=== PATIENT | male | born 1935 | race Caucasian/White ===

== ENCOUNTER 2019-06-20 12:11 | Outpatient (CLI) | payer MEDICARE, OTHER ==
[~2019-06-20 12:11] MED LIST: CETI-90 PO; CHLO4TAB PO; DIO80T PO; FLO0.4C PO; MULT-342 PO; TRAM50TA2 PO
== END 2019-06-20 23:59 | disposition home or self-care (01) ==
LOC: RAD 12:11
DX: M48.02 Spinal stenosis, cervical region (principal); M54.12 Radiculopathy, cervical region; M54.13 Radiculopathy, cervicothoracic region; G44.221 Chronic tension-type headache, intractable; I63.81 Other cerebral infarction due to occlusion or stenosis of small artery; I10 Essential (primary) hypertension; N40.0 Benign prostatic hyperplasia without lower urinary tract symptoms; E78.5 Hyperlipidemia, unspecified; I48.20 Chronic atrial fibrillation, unspecified
CPT/HCPCS: 72141

== ENCOUNTER 2020-01-27 10:24 | Outpatient (CLI) | payer MEDICARE, OTHER ==
[~2020-01-27 10:24] MED LIST changes: +iohexol 350MG/ML 100ml bottle IV ONE
[2020-01-27] MEDS ORDERED: GADOTERATE MEGLUMINE 7.5 MMOL/15 ML VIAL IV ONE (12:55)
== END 2020-01-27 23:59 | disposition home or self-care (01) ==
LOC: RAD 10:24
PROVIDERS: ATTEND Psychiatry & Neurology Neurology
DX: I65.23 Occlusion and stenosis of bilateral carotid arteries (principal); G31.9 Degenerative disease of nervous system, unspecified; G93.89 Other specified disorders of brain
CPT/HCPCS: 70496; 70498; 70553; A9575; Q9967

== ENCOUNTER 2020-11-05 10:22 | Outpatient (CLI) | payer MEDICARE, OTHER ==
[~2020-11-05 10:22] MED LIST changes: -iohexol 350MG/ML 100ml bottle IV ONE
== END 2020-11-05 23:59 | disposition home or self-care (01) ==
LOC: RAD 10:22
PROVIDERS: ATTEND Anesthesiology
DX: M50.023 Cervical disc disorder at C6-C7 level with myelopathy (principal); M48.02 Spinal stenosis, cervical region; M47.12 Other spondylosis with myelopathy, cervical region; G95.89 Other specified diseases of spinal cord
CPT/HCPCS: 72141

== ENCOUNTER 2021-10-06 23:58 | Emergency (ER) | payer MEDICARE, OTHER ==
[~2021-10-06] VITALS: Ht 188 cm; Wt 113.6 kg
--- NOTE | 2021-10-07 00:21 | NUR ---
Mild small scattered abrasions observed on extremities. No head wounds noted.
[2021-10-07] MEDS ORDERED: normal saline 1000ML IV soln IVB ONE (00:30)
[2021-10-07 01:35] LABS: BASOPHILS % (AUTO) 0.5 % (0-1); EOSINOPHILS % (AUTO) 0.5 % (0-6); HEMATOCRIT 39.2 % (42.0-52.0); HEMOGLOBIN 13.1 g/dl (14.0-17.9); LYMPHOCYTES % (AUTO) 14.2 % (21-51); MEAN CORPUSCULAR HGB CONC 33.4 g/dL (33.0-36.5); MEAN CORPUSCULAR VOLUME 89.8 FL (78-98); MEAN PLATELET VOLUME 10.8 FL (7.4-10.4); MONOCYTES # (AUTO) 0.6 X10'3 (0-0.9); MONOCYTES % (AUTO) 8.8 % (2-12); NEUTROPHILS # (AUTO) 5.5 X10'3 (1.8-7.7); PLATELET COUNT 129 X10'3 (140-440); RED BLOOD COUNT 4.37 X10'6 (4.70-6.10); RED CELL DISTRIBUTION WIDTH 15.6 % (11.5-14.5); WHITE BLOOD COUNT 7.3 X10'3 (4.5-11.0)
[2021-10-07 01:42] LABS: ALANINE AMINOTRANSFERASE 8 U/L (12-78); ALBUMIN 3.7 G/DL (3.4-5.0); ALKALINE PHOSPHATASE 104 IU/L (46-116); ANION GAP 9 (8-16); ASPARTATE AMINO TRANSFERASE 15 U/L (10-37); BILIRUBIN,TOTAL 0.6 MG/DL (0.1-1.0); BLOOD UREA NITROGEN 26 MG/DL (7-18); BUN/CREATININE RATIO 16.6 (5.4-32.0); CALCIUM 8.9 MG/DL (8.5-10.1); CHLORIDE 107 MMOL/L (99-107); CREATININE 1.57 MG/DL (0.60-1.10); GLUCOSE 117 MG/DL (70-104); POTASSIUM 4.3 MMOL/L (3.5-5.1); SODIUM 145 MMOL/L (135-145); TOTAL CARBON DIOXIDE 28.8 MMOL/L (24-32); TOTAL PROTEIN 7.3 G/DL (6.4-8.2); eGFR 42 ML/MIN
[2021-10-07 01:45] LABS: MAGNESIUM 2.5 MG/DL (1.5-2.4)
[2021-10-07 04:08] LABS: CLARITY,URINE CLEAR (Clear); COLOR,URINE YELLOW (Yellow); GLUCOSE, URINE NEGATIVE (Neg); KETONES,URINE TRACE mg/dl (Neg); LEUKOCYTE ESTERASE ,URINE NEGATIVE (Neg); NITRITES, URINE NEGATIVE (Neg); OCCULT BLOOD,URINE NEGATIVE (Neg); PROTEIN,URINE NEGATIVE (Neg); UROBILINOGEN,URINE 0.2 E.U/dL (0.2-1.0)
[2021-10-07 04:13] LABS: UA COLLECTION TYPE URINAL
[2021-10-07 04:44] LABS: ANISOCYTOSIS FEW; ELLIPTOCYTES 1+; LARGE PLATELETS FEW; PLATELET ESTIMATE DECREASED
[2021-10-07] MEDS ORDERED: LIDOcaine 5% patch TP ONE (06:00)
[2021-10-07] MEDS ORDERED: AZIT-83 PO (06:12)
[2021-10-07] MEDS ORDERED: NIRM1TAB PO (07:03)
[2021-10-07 07:32] VITALS: BP 166/95
== END 2021-10-07 07:24 | disposition home or self-care (01) ==
LOC: ER 23:59
DX: U07.1 COVID-19 (principal); R07.81 Pleurodynia; M54.2 Cervicalgia; E78.00 Pure hypercholesterolemia, unspecified; I10 Essential (primary) hypertension; G89.29 Other chronic pain; M54.9 Dorsalgia, unspecified; Z87.81 Personal history of (healed) traumatic fracture; I51.9 Heart disease, unspecified; W19.XXXA Unspecified fall, initial encounter; Y93.89 Activity, other specified; Y92.89 Other specified places as the place of occurrence of the external cause; Y99.8 Other external cause status
CPT/HCPCS: 36415; 70450; 71045; 71250; 72125; 80053; 81003; 83735; 83880; 84145; 84484; 85008; 85025; 87635; 96360; 99285; C9803; J7030

== ENCOUNTER 2023-02-17 18:27 | Inpatient (IN) | payer MEDICARE, OTHER ==
[~2023-02-17] VITALS: Ht 182.9 cm; Wt 81.8 kg
[~2023-02-17 18:27] MED LIST changes: +NIRM1TAB PO
[2023-02-17] MEDS ORDERED: aspirin 81mg tab.chew PO ONE (18:40)
[2023-02-17 20:57] LABS: BASOPHILS % (AUTO) 0.7 % (0-1); EOSINOPHILS % (AUTO) 0.5 % (0-6); HEMATOCRIT 40.8 % (42.0-52.0); HEMOGLOBIN 13.6 g/dl (14.0-17.9); LYMPHOCYTES # (AUTO) 0.8 X10'3 (1.1-4.8); LYMPHOCYTES % (AUTO) 18.2 % (21-51); MEAN CORPUSCULAR HEMOGLOBIN 31.3 PG (27.0-31.0); MEAN CORPUSCULAR HGB CONC 33.3 g/dL (33.0-36.5); MEAN PLATELET VOLUME 9.9 FL (7.4-10.4); MONOCYTES # (AUTO) 0.4 X10'3 (0-0.9); MONOCYTES % (AUTO) 8.3 % (2-12); NEUTROPHILS # (AUTO) 3.4 X10'3 (1.8-7.7); NEUTROPHILS % (AUTO) 72.3 % (42-75); PLATELET COUNT 150 X10'3 (140-440); RED BLOOD COUNT 4.34 X10'6 (4.70-6.10); RED CELL DISTRIBUTION WIDTH 14.5 % (11.5-14.5); WHITE BLOOD COUNT 4.7 X10'3 (4.5-11.0)
[2023-02-17 21:06] LABS: ALBUMIN 3.5 G/DL (3.4-5.0); ALBUMIN/GLOBULIN RATIO 1.2 (1.1-1.5); ALKALINE PHOSPHATASE 81 IU/L (46-116); ANION GAP 6 (8-16); ASPARTATE AMINO TRANSFERASE 11 U/L (10-37); BLOOD UREA NITROGEN 21 MG/DL (7-18); BUN/CREATININE RATIO 15.7 (10.0-20.0); CHLORIDE 106 MMOL/L (99-107); CREATININE 1.34 MG/DL (0.60-1.10); GLUCOSE 110 MG/DL (70-104); POTASSIUM 3.9 MMOL/L (3.5-5.1); SODIUM 141 MMOL/L (135-145); TOTAL CARBON DIOXIDE 29.5 MMOL/L (24-32); TOTAL PROTEIN 6.4 G/DL (6.4-8.2); eCRCL 43 ML/MIN; eGFR 51 ML/MIN
[2023-02-17 21:07] LABS: MAGNESIUM 1.9 MG/DL (1.5-2.4); PRO BRAIN NATRIURETIC PEPTIDE 1395 PG/ML (0-450)
[2023-02-17 21:13] LABS: ALANINE AMINOTRANSFERASE < 6 U/L (12-78)
[2023-02-17 22:52] VITALS: TEMP 98.4
[2023-02-18] MEDS ORDERED: LOP12.5T PO (00:50)
[2023-02-18] MEDS ORDERED: CARB-126 PO (00:52)
[2023-02-18] MEDS ORDERED: APIX5TAB5 (00:52)
[2023-02-18] MEDS ORDERED: SERT25TA PO (00:53)
[2023-02-18] MEDS ORDERED: KEP500T PO (00:53)
--- NOTE | 2023-02-18 01:30 | NUR ---
Warm blankets provided for patient. Patient denies needs at this time. Respirations even and unlabored, no acute distress noted. Call light within reach.
[2023-02-18] MEDS ORDERED: SERT-434 PO (02:42)
[2023-02-18] MEDS ORDERED: APIX5TAB3 PO (02:43)
[2023-02-18] MEDS ORDERED: CARB-314 (02:44)
[2023-02-18] MEDS ORDERED: CARB1TAB42 (02:44)
[2023-02-18] MEDS ORDERED: magnesium 4gm in 100ml NS 100 ML IV PRN (03:25)
[2023-02-18] MEDS ORDERED: magnesium hydroxide 30ml (MOM) UD suspension PO PRN (03:25)
[2023-02-18] MEDS ORDERED: acetaminophen 325mg tablet PO PRN (03:25)
[2023-02-18] MEDS ORDERED: potassium Cl 40MEQ/1/2NS 520ml 520 ML IV PRN (03:25)
[2023-02-18] MEDS ORDERED: potassium Cl 20 mEq SR tablet PO PRN ×2 (03:25)
[2023-02-18] MEDS ORDERED: magnesium Cl slow-release 64mg tablet PO PRN (03:25)
[2023-02-18] MEDS ORDERED: mag hydrox/Alum hydrox/simeth 30ml oral suspension PO PRN (03:25)
[2023-02-18] MEDS ORDERED: ondansetron/PF 4mg/2ml inj IV PRN (03:25)
[2023-02-18] MEDS ORDERED: magnesium 2GM in 50ml NS 50 ML IV PRN (03:25)
[2023-02-18 07:49] LABS: MAGNESIUM 1.9 MG/DL (1.5-2.4); POTASSIUM 3.5 MMOL/L (3.5-5.1)
[2023-02-18] MEDS ORDERED: K and/or MAG REPLACEMENT MC SCH (08:00)
[2023-02-18] MEDS ORDERED: docusate sod 100mg capsule PO SCH (08:00)
[2023-02-18 09:58] VITALS: BP 153/94; PULSE 63; RESP 15; O2SAT 95
--- NOTE | 2023-02-18 12:24 | NUR ---
Paged Physical Therapist to come see patient per Dr. Henley request
--- NOTE | 2023-02-18 14:11 | NUR ---
Paged Dr. Henley PAGER ID: [phone] MESSAGE: CADEN Ojeda RN RE: Shahbaz Baumann. Patient has been seen by physical therapist. Per PT, patient is safe to home using assistive devices. Pt will follow up with his PCP too
--- NOTE | 2023-02-18 15:00 | NUR ---
PT WAS DC'D FROM ER ROOM 3 AT 1500 WITH HIS , PT VERBALIZED UNDERSTANDING DC INSTRUCTIONS, NO QUESTIONS, PT AND WILL FOLLOW UP WITH PMD FOR REFERRAL OUTPATIENT PT OR HOME HEALTH PT.
--- NOTE | 2023-02-18 18:30 | NUR ---
Late entry: Discharge instructions were given by Ciera MARCH for me during lunch break. Patient was discharged home from ER accompanied by his who is a nurse.
[2023-02-18] MEDS ORDERED: levetiracetam 250mg tablet PO SCH (20:00)
[2023-02-18] MEDS ORDERED: apixaban 5mg tablet PO SCH (20:00)
[2023-02-18] MEDS ORDERED: metoprolol tartrate 12.5mg (1/2 tablet) PO SCH (20:00)
[2023-02-19] MEDS ORDERED: sertraline 50mg tablet PO SCH (08:00)
[2023-02-19] MEDS ORDERED: multivitamins, therapeutics tablet PO SCH (08:00)
[2023-02-19] MEDS ORDERED: tamsulosin 0.4mg capsule PO SCH (08:00)
== END 2023-02-18 17:00 | disposition home or self-care (01) | DRG 605 ==
LOC: ER 18:27 → ED HOLD 02-18 03:28
PROVIDERS: ADMIT Internal Medicine; ATTEND Internal Medicine
DX: S70.01XA Contusion of right hip, initial encounter (principal); R26.81 Unsteadiness on feet; S40.011A Contusion of right shoulder, initial encounter; M47.9 Spondylosis, unspecified; Z66 Do not resuscitate; E78.00 Pure hypercholesterolemia, unspecified; G20.A1 Parkinson's disease without dyskinesia, without mention of fluctuations; I10 Essential (primary) hypertension; Z96.652 Presence of left artificial knee joint; I48.91 Unspecified atrial fibrillation; M54.30 Sciatica, unspecified side; R29.6 Repeated falls; S00.93XA Contusion of unspecified part of head, initial encounter; W18.39XA Other fall on same level, initial encounter; Y93.89 Activity, other specified; Y92.89 Other specified places as the place of occurrence of the external cause; Y99.8 Other external cause status; Z87.442 Personal history of urinary calculi; Z79.01 Long term (current) use of anticoagulants; Z88.6 Allergy status to analgesic agent; Z79.899 Other long term (current) drug therapy
CPT/HCPCS: 36415; 70450; 71045; 73030; 73501; 80053; 83735; 83880; 84132; 84484; 85025; 93005; 97161; 97530; 99285; G0378

== ENCOUNTER 2023-02-27 11:44 | Emergency (ER) | payer MEDICARE, OTHER ==
[~2023-02-27] VITALS: Ht 182.9 cm; Wt 84.5 kg
[~2023-02-27 11:44] MED LIST changes: +APIX5TAB3 PO; +CARB-314; +CARB1TAB42; -CETI-90 PO; -CHLO4TAB PO; -DIO80T PO; +KEP500T PO; +LOP12.5T PO; -NIRM1TAB PO; +SERT-434 PO
[2023-02-27] MEDS ORDERED: LidoCAINE 2% Topical Jelly 11mL syringe TOP ONE (12:10)
[2023-02-27 13:30] VITALS: TEMP 98.2
[2023-02-27 13:44] LABS: BASOPHILS % (AUTO) 0.6 % (0-1); EOSINOPHILS % (AUTO) 0.5 % (0-6); HEMATOCRIT 38.1 % (42.0-52.0); HEMOGLOBIN 12.5 g/dl (14.0-17.9); LYMPHOCYTES # (AUTO) 0.8 X10'3 (1.1-4.8); LYMPHOCYTES % (AUTO) 11.8 % (21-51); MEAN CORPUSCULAR HEMOGLOBIN 31.1 PG (27.0-31.0); MEAN CORPUSCULAR HGB CONC 32.8 g/dL (33.0-36.5); MEAN CORPUSCULAR VOLUME 94.7 FL (78-98); MEAN PLATELET VOLUME 9.9 FL (7.4-10.4); MONOCYTES # (AUTO) 0.8 X10'3 (0-0.9); MONOCYTES % (AUTO) 10.9 % (2-12); NEUTROPHILS # (AUTO) 5.3 X10'3 (1.8-7.7); NEUTROPHILS % (AUTO) 76.2 % (42-75); PLATELET COUNT 140 X10'3 (140-440); RED BLOOD COUNT 4.03 X10'6 (4.70-6.10); RED CELL DISTRIBUTION WIDTH 15.1 % (11.5-14.5)
[2023-02-27 14:03] LABS: ALBUMIN 3.3 G/DL (3.4-5.0); ANION GAP 9 (8-16); BLOOD UREA NITROGEN 23 MG/DL (7-18); BUN/CREATININE RATIO 15.1 (10.0-20.0); CHLORIDE 107 MMOL/L (99-107); CREATININE 1.52 MG/DL (0.60-1.10); GLUCOSE 93 MG/DL (70-104); SODIUM 142 MMOL/L (135-145); TOTAL CARBON DIOXIDE 26.2 MMOL/L (24-32); eCRCL 38 ML/MIN; eGFR 44 ML/MIN
[2023-02-27] MEDS ORDERED: CEPH250T PO (14:11)
[2023-02-27 14:16] LABS: BILIRUBIN,URINE NEGATIVE (Neg); CLARITY,URINE CLEAR (Clear); COLOR,URINE YELLOW (Yellow); GLUCOSE, URINE NEGATIVE (Neg); KETONES,URINE NEGATIVE (Neg); LEUKOCYTE ESTERASE ,URINE NEGATIVE (Neg); NITRITES, URINE NEGATIVE (Neg); OCCULT BLOOD,URINE SMALL (Neg); PH,URINE 5.5 (4.8-8.0); PROTEIN,URINE NEGATIVE (Neg); UROBILINOGEN,URINE 0.2 E.U/dL (0.2-1.0)
[2023-02-27 14:36] LABS: UA COLLECTION TYPE FOLEY CATH
[2023-02-27 14:38] LABS: BACTERIA,URINE NONE SEEN /HPF (Neg); MUCUS STRANDS NONE SEEN /LPF (Neg); SQUAMOUS EPITHELIAL CELL,UR NONE SEEN /LPF (FEW); WBC,URINE 0-4 /HPF (0-4)
[2023-02-27 14:44] VITALS: BP 171/85; PULSE 68; RESP 16; O2SAT 98
== END 2023-02-27 14:46 | disposition home or self-care (01) ==
LOC: ER 11:44
DX: R33.9 Retention of urine, unspecified (principal); E78.00 Pure hypercholesterolemia, unspecified; I10 Essential (primary) hypertension; Z88.5 Allergy status to narcotic agent; Z79.899 Other long term (current) drug therapy; Z79.2 Long term (current) use of antibiotics
CPT/HCPCS: 36415; 51702; 80048; 81001; 85025; 99284; A4314; A4358

== ENCOUNTER 2023-03-21 10:30 | Emergency (ER) | payer MEDICARE, OTHER ==
[~2023-03-21] VITALS: Ht 185.4 cm; Wt 81.8 kg
[~2023-03-21 10:30] MED LIST changes: +CEPH250T PO
[2023-03-21 12:03] LABS: BASOPHILS % (AUTO) 0.4 % (0-1); EOSINOPHILS % (AUTO) 0 % (0-6); HEMATOCRIT 37.9 % (42.0-52.0); HEMOGLOBIN 12.7 g/dl (14.0-17.9); LYMPHOCYTES # (AUTO) 0.3 X10'3 (1.1-4.8); LYMPHOCYTES % (AUTO) 3.9 % (21-51); MEAN CORPUSCULAR HEMOGLOBIN 31.7 PG (27.0-31.0); MEAN CORPUSCULAR HGB CONC 33.5 g/dL (33.0-36.5); MEAN CORPUSCULAR VOLUME 94.7 FL (78-98); MEAN PLATELET VOLUME 9.2 FL (7.4-10.4); MONOCYTES # (AUTO) 0.5 X10'3 (0-0.9); MONOCYTES % (AUTO) 7.3 % (2-12); NEUTROPHILS # (AUTO) 6.3 X10'3 (1.8-7.7); NEUTROPHILS % (AUTO) 88.4 % (42-75); PLATELET COUNT 147 X10'3 (140-440); RED CELL DISTRIBUTION WIDTH 14.8 % (11.5-14.5); WHITE BLOOD COUNT 7.1 X10'3 (4.5-11.0)
[2023-03-21 12:21] LABS: ALBUMIN 3.1 G/DL (3.4-5.0); ALBUMIN/GLOBULIN RATIO 0.9 (1.1-1.5); ALKALINE PHOSPHATASE 79 IU/L (46-116); ANION GAP 6 (8-16); ASPARTATE AMINO TRANSFERASE 12 U/L (10-37); BILIRUBIN,TOTAL 1.1 MG/DL (0.1-1.0); BLOOD UREA NITROGEN 23 MG/DL (7-18); BUN/CREATININE RATIO 15.4 (10.0-20.0); CALCIUM 8.8 MG/DL (8.5-10.1); CHLORIDE 102 MMOL/L (99-107); CREATININE 1.49 MG/DL (0.60-1.10); GLUCOSE 123 MG/DL (70-104); POTASSIUM 3.8 MMOL/L (3.5-5.1); SODIUM 136 MMOL/L (135-145); TOTAL CARBON DIOXIDE 28.5 MMOL/L (24-32); TOTAL PROTEIN 6.7 G/DL (6.4-8.2); eCRCL 40 ML/MIN; eGFR 45 ML/MIN
[2023-03-21 12:23] LABS: ALANINE AMINOTRANSFERASE 6 U/L (12-78)
[2023-03-21 12:24] LABS: BILIRUBIN,URINE NEGATIVE (Neg); CLARITY,URINE TURBID (Clear); COLOR,URINE YELLOW (Yellow); GLUCOSE, URINE NEGATIVE (Neg); KETONES,URINE TRACE mg/dl (Neg); LEUKOCYTE ESTERASE ,URINE MODERATE (Neg); NITRITES, URINE POSITIVE (Neg); OCCULT BLOOD,URINE MODERATE (Neg); PROTEIN,URINE TRACE mg/dl (Neg); UROBILINOGEN,URINE 0.2 E.U/dL (0.2-1.0)
[2023-03-21 12:30] LABS: UA COLLECTION TYPE VOIDED
[2023-03-21 12:40] LABS: WBC,URINE TNTC /HPF (0-4)
[2023-03-21 12:42] LABS: BACTERIA,URINE 3+ /HPF (Neg); WBC CLUMPS,URINE MANY /HPF (NEGATIVE)
[2023-03-21 12:45] LABS: SQUAMOUS EPITHELIAL CELL,UR FEW /LPF (FEW)
[2023-03-21] MEDS ORDERED: CefTRIAXone/D5W-Rocephin 1gm 50 ML IV ONE (13:10)
[2023-03-21 16:35] VITALS: BP 136/94; PULSE 77; RESP 12; TEMP 99.5; O2SAT 93
== END 2023-03-21 19:48 | disposition left against medical advice (07) ==
LOC: ER 10:31
DX: R50.9 Fever, unspecified (principal); Z53.21 Procedure and treatment not carried out due to patient leaving prior to being seen by health care provider
CPT/HCPCS: 36415; 73502; 73552; 80053; 81001; 83605; 84484; 85025; 87040; 87077; 87088; 87186; 99281